=== PATIENT | female | born 1940 | race Caucasian/White ===

== ENCOUNTER → 2016-06-19 | Outpatient (CLI) | payer OTHER ==
[2016-06-19 12:49] LABS: BASO % 0.7 %; BASO ABS # 0.04 K/uL (0-0.2); COMPLETE YES; EOS % 4.1 %; HEMATOCRIT 34.5 % (37-47); IG% 0.2 %; LYMPH % 35.1 %; MEAN CELL VOLUME 87.3 fL (80-100); MEAN CORPUSCULAR HEMOGLOBIN 28.9 pg (25-34); MEAN PLATELET VOLUME 10.8 fL (7.4-10.4); MONO % 6.6 %; NEUT % 53.3 %; PLATELET COUNT 218 K/uL (130-400); RED BLOOD COUNT 3.95 M/uL (4.2-5.4); WHITE BLOOD COUNT 5.42 K/uL (4.8-10.8)
[2016-06-19 13:28] LABS: ALB/GLOB RATIO 1.1 (0.9-2); ALKALINE PHOSPHATASE 121 U/L (45-117); ALT/SGPT 21 U/L (12-78); AST/SGOT 19 U/L (15-37); BLOOD UREA NITROGEN 18 mg/dl (7-18); BUN/CREATININE RATIO 15.1 (10-20); CALCIUM 8.5 mg/dl (8.5-10.1); CARBON DIOXIDE 25 mmol/L (21-32); CHLORIDE 111 mmol/L (98-107); GLUCOSE 82 mg/dl (70-99); HDL CHOLESTEROL 66 mg/dl; POTASSIUM 3.9 mmol/L (3.5-5.1); SODIUM 143 mmol/L (136-145)
[2016-06-19 13:38] LABS: CHOLESTEROL 160 mg/dl (0-200); CHOLESTEROL/HDL RATIO 2.4; LDL CHOLESTEROL CALCULATED 70 mg/dl; TRIGLYCERIDES 121 mg/dl (0-150); VERY LOW DENSITY LIPOPROT CALC 24 mg/dl
== END | disposition home or self-care (01) ==
LOC: C.LABPBG 07:58
PROVIDERS: ATTEND Neuromusculoskeletal Medicine & OMM
DX: Z00.00 Encounter for general adult medical examination without abnormal findings (principal)

== ENCOUNTER → 2016-12-21 | Outpatient (CLI) | payer OTHER ==
[2016-12-21 17:37] LABS: BASO % 0.7 %; BASO ABS # 0.04 K/uL (0-0.2); COMPLETE YES; EOS % 6.2 %; HEMATOCRIT 34.3 % (37-47); IG% 0.6 %; LYMPH % 37.8 %; LYMPH ABS # 2.02 K/uL (1.2-3.4); MEAN CELL VOLUME 90.7 fL (80-100); MEAN CORPUSCULAR HEMOGLOBIN 29.6 pg (25-34); MEAN CORPUSCULAR HGB CONC 32.7 g/dl (32-36); MEAN PLATELET VOLUME 11.1 fL (7.4-10.4); MONO % 6.7 %; PLATELET COUNT 222 K/uL (130-400); RED BLOOD COUNT 3.78 M/uL (4.2-5.4); WHITE BLOOD COUNT 5.34 K/uL (4.8-10.8)
[2016-12-21 17:55] LABS: ALT/SGPT 26 U/L (12-78); AST/SGOT 25 U/L (15-37); BLOOD UREA NITROGEN 31 mg/dl (7-18); BUN/CREATININE RATIO 23.9 (10-20); CALCIUM 9.2 mg/dl (8.5-10.1); CARBON DIOXIDE 22 mmol/L (21-32); CHLORIDE 114 mmol/L (98-107); GLUCOSE 100 mg/dl (70-99); POTASSIUM 4.2 mmol/L (3.5-5.1); SODIUM 143 mmol/L (136-145)
[2016-12-21 17:58] LABS: ALKALINE PHOSPHATASE 148 U/L (45-117)
== END | disposition home or self-care (01) ==
LOC: C.LABPBG 14:16
PROVIDERS: ATTEND Neuromusculoskeletal Medicine & OMM
DX: Z00.00 Encounter for general adult medical examination without abnormal findings (principal); D64.9 Anemia, unspecified; I10 Essential (primary) hypertension

== ENCOUNTER → 2017-04-26 | Outpatient (CLI) | payer OTHER ==
[2017-04-26 18:11] LABS: BASO % 0.7 %; BASO ABS # 0.04 K/uL (0-0.2); EOS % 7.1 %; EOS ABS # 0.42 K/uL (0-0.5); HEMATOCRIT 33.2 % (37-47); HEMOGLOBIN 10.8 g/dL (12.0-16.0); IG# 0.02 K/uL (0.00-0.02); LYMPH % 26.2 %; LYMPH ABS # 1.55 K/uL (1.2-3.4); MEAN CELL VOLUME 92.2 fL (80-100); MEAN CORPUSCULAR HGB CONC 32.5 g/dl (32-36); MEAN PLATELET VOLUME 11.6 fL (7.4-10.4); MONO % 7.1 %; MONO ABS # 0.42 K/uL (0.11-0.59); NEUT % 58.6 %; NEUT ABS # 3.46 K/uL (1.4-6.5); PLATELET COUNT 232 K/uL (130-400); RED CELL DISTRIBUTION WIDTH CV 15.1 % (11.5-14.5); RED CELL DISTRIBUTION WIDTH SD 50.9 fL (36.4-46.3); WHITE BLOOD COUNT 5.91 K/uL (4.8-10.8)
[2017-04-26 18:29] LABS: BLOOD UREA NITROGEN 36 mg/dl (7-18); CREATININE 1.84 mg/dl (0.60-1.20); GLUCOSE 91 mg/dl (70-99)
[2017-04-26 18:30] LABS: CALCIUM 9.5 mg/dl (8.5-10.1); CARBON DIOXIDE 25 mmol/L (21-32); POTASSIUM 3.7 mmol/L (3.5-5.1); SODIUM 138 mmol/L (136-145)
== END | disposition home or self-care (01) ==
LOC: C.LABPBG 12:10
PROVIDERS: ATTEND Internal Medicine Rheumatology
DX: M25.50 Pain in unspecified joint (principal); M81.0 Age-related osteoporosis without current pathological fracture; E55.9 Vitamin D deficiency, unspecified; R20.2 Paresthesia of skin; Z79.899 Other long term (current) drug therapy

== ENCOUNTER → 2017-05-04 | Outpatient (CLI) | payer OTHER | END | disposition home or self-care (01) | LOC: C.LABPBG 12:30 | PROVIDERS: ATTEND Family Medicine | DX: E55.9 Vitamin D deficiency, unspecified (principal); D64.9 Anemia, unspecified ==

== ENCOUNTER → 2017-05-29 | Outpatient (CLI) | payer OTHER ==
[2017-05-29 17:44] LABS: ALBUMIN 3.6 gm/dl (3.4-5.0); BLOOD UREA NITROGEN 35 mg/dl (7-18); CALCIUM 9.1 mg/dl (8.5-10.1); CARBON DIOXIDE 24 mmol/L (21-32); CREATININE 1.56 mg/dl (0.60-1.20); GLUCOSE 93 mg/dl (70-99); PHOSPHORUS 3.8 mg/dl (2.5-4.9); POTASSIUM 4.2 mmol/L (3.5-5.1); SODIUM 144 mmol/L (136-145)
== END | disposition home or self-care (01) ==
LOC: C.LABPBG 15:20
PROVIDERS: ATTEND Internal Medicine Nephrology
DX: N17.9 Acute kidney failure, unspecified (principal)

== ENCOUNTER → 2017-07-24 | Outpatient (CLI) | payer OTHER ==
[2017-07-24 14:34] LABS: ALBUMIN 3.8 gm/dl (3.4-5.0); ALT/SGPT 21 U/L (12-78); AST/SGOT 18 U/L (15-37); BLOOD UREA NITROGEN 27 mg/dl (7-18); CALCIUM 9.7 mg/dl (8.5-10.1); CARBON DIOXIDE 22 mmol/L (21-32); CREATININE 1.43 mg/dl (0.60-1.20); GLUCOSE 91 mg/dl (70-99); POTASSIUM 4.1 mmol/L (3.5-5.1); SODIUM 138 mmol/L (136-145)
[2017-07-24 14:37] LABS: CHOLESTEROL 230 mg/dl (0-200); LDL CHOLESTEROL CALCULATED 119 mg/dl; PHOSPHORUS 3.2 mg/dl (2.5-4.9)
== END | disposition home or self-care (01) ==
LOC: C.LABPBG 10:34
PROVIDERS: ATTEND Family Medicine
DX: E78.2 Mixed hyperlipidemia (principal); N17.9 Acute kidney failure, unspecified

== ENCOUNTER 2023-02-26 10:21 | Observation (INO) ==
--- NOTE | 2023-02-26 11:49 | XRay Report ---
XR chest 1V not portable HISTORY: Chest pain, nonspecific COMPARISON: Chest 08/19/2021. FINDINGS: No pneumothorax. No pleural effusions. No focal lung consolidations to suggest a pneumonia. No evidence for pulmonary edema. The heart is normal in size. No acute fractures identified. Possibl e 1 cm nodule within the left upper lobe. IMPRESSION: 1. No acute process within the chest. 2. Possible 1 cm left upper lobe nodule. Follow-up nonemergent chest CT is recommended for further ev aluation. ACT 112: Positive. There are findings on this exam that require communication between the performing entity and the patient following Patient Test Result Information Act ([place] Act 112) guidelines. Electronically signed by: Redd Ulrich M.D. 02/26/2023 11:48 AM
[2023-02-26 12:21] LABS: Basophils # (auto) 0.02 K/uL (0.00-0.20); Basophils % (auto) 0.3 %; Eosinophils % (auto) 1.3 %; Hematocrit (blood only) 32.2 % (37.0-47.0); Hemoglobin 10.4 g/dl (12.0-16.0); Immature Granulocytes # (auto) 0.12 K/uL (0.01-0.20); Immature Granulocytes % (auto) 1.6 %; Lymphocytes # (auto) 0.46 K/uL (1.20-3.40); Lymphocytes % (auto) 6.1 %; Mean Corpuscular Hemoglobin 32.7 pg (25.0-34.0); Mean Corpuscular Hgb Conc 32.3 g/dL (32.0-36.0); Mean Corpuscular Volume 101.3 fL (80.0-100.0); Mean Platelet Volume 11.7 fL (9.4-12.4); Monocytes # (auto) 0.63 K/uL (0.11-0.59); Monocytes % (auto) 8.3 %; Neutrophils # (auto) 6.23 K/uL (1.40-6.50); Neutrophils % (auto) 82.4 %; Nucleated RBC # (auto) 0.03 K/uL (0.00-0.12); Nucleated RBC % (auto) 0.4 %; Platelet Count 154 K/uL (130-400); RDW Coefficient of Variation 15.4 % (11.5-14.5); RDW Standard Deviation 56.5 fL (36.4-46.3); Red Blood Count 3.18 M/uL (4.20-5.40); White Blood Count 7.56 K/ul (4.8-10.8)
[2023-02-26 12:38] LABS: Alanine Aminotransferase 22 U/L (7-52); Albumin Globulin Ratio 1.7 (0.9-2); Albumin Level 4.1 gm/dl (3.4-5.0); Alkaline Phosphatase 129 U/L (34-104); Anion Gap 8 (3-11); Aspartate Aminotransferase 20 U/L (13-39); BUN Creatinine Ratio 19.5 (10-20); Bilirubin,Total 0.7 mg/dl (0.2-1.0); Blood Urea Nitrogen 31 mg/dl (6-23); Calcium 8.9 mg/dl (8.6-10.3); Carbon Dioxide 20 mmol/L (21-32); Chloride 111 mmol/L (98-107); Est GFR (African American) 34.2 ml/min; Est GFR (Non-African American) 29.5 ml/min; Globulin 2.4 gm/dl (2.5-4.0); Glucose 95 mg/dl (70-99(Fasting)); Potassium 3.6 mmol/L (3.5-5.1); Sodium 139 mmol/L (136-145); Total Protein 6.5 gm/dl (6.0-8.3)
[2023-02-26 12:44] LABS: Troponin I High Sensitivity 33.8 pg/ml (0-14)
[2023-02-26 12:58] LABS: Partial Thromboplastin Ratio 0.8; Partial Thromboplastin Time 23.9 Seconds (21.0-31.0); Prothrombin Time 11.4 Seconds (9.0-12.0)
--- NOTE | 2023-02-26 13:23 | Emergency Department Note ---
Impression & Plan Anemia, Chest pain, COVID, Abnormal CXR ED Provider Note NAME: ELVIN NAVA AGE: 82 SEX: F : 1940 ARRIVES VIA: Ambulance INFORMANT: Patient, ED PROVIDER(S): Santiago Agarwal MD CHIEF COMPLAINT: MEDICAL DECISION MAKING: Patient presents due to concern for chest pain in setting of cough. IV was established and blood was obtained. Patient is ordered a breathing treatment. Initial blood work shows normal white count mild anemia hemoglobin 10.4 which is chronic and stable with normal platelet count kidney function with creatinine 1.59. Initial troponin of 33.8. Repeat is 38. EKG with no obvious significant changes. Patient is COVID-positive. Given the patient is high risk with positive troponin I did suggest admission the patient would like to stay. Patient initially was considering leaving AGAINST MEDICAL ADVICE but then decided that she would stay in hospital. I did speak with on-call hospitalist Dr. Vallejo and the patient was admitted to the medicine service. Of note a pulmonary nodule was noted on the patient's chest x-ray and given the patient's inpatient stay CT of the chest was ordered. Discussion w/ other healthcare providers: Dr. Vallejo inpatient medicine service Prior /Outside records reviewed: I did review a cardiology visit from [facility] from November 20, 2022. The patient does have a known history of coronary atherosclerosis hypertension hyperlipidemia tricuspid regurgitation as well as carotid stenosis. Patient was prescribed a higher dose of Imdur at 120 mg daily. Patient is also on other blood pressure medications as well as aspirin. Differential diagnosis: Reactive airway disease, pneumonia, pneumothorax, COPD, CHF, ACS, pulmonary embolism, musculoskeletal, GERD as well as other pathologies were considered. Diagnostics, as interpreted by me: ECG: Sinus, rate of 75, normal intervals, normal axis slight depressions noted in the lateral leads. T wave inversion noted in lead III. No significant changes on EKG from comparison August 19, 2021 Cardiac monitoring: An order was placed for continuous cardiac monitoring. The monitor shows a rate of 77 with sinus rhythm. Patient was placed on pulse oximetry Medical decision rules: None Imaging studies: I informally interpreted the patient's chest x-ray which does not show obvious pneumonia or pneumothorax with formal report to follow. CT chest diagnostic w con CLINICAL HISTORY: eval lung nodule TECHNIQUE: Multidetector row helical CT of the chest was performed with intravenous contrast. Coronal and sagittal reformations were obtained. Automated dose lowering techniques and/or adjustment according to patient size were utilized for this exam. CT DOSE: 567.82 mGy.cm Comparison: Comparison is made to chest radiograph 02/26/2023 FINDINGS: Lungs and pleura: No suspicious pulmonary nodules are seen. Heart and pericardium: Cardiomegaly is seen with biatrial enlargement. Moderate atherosclerotic disease is seen. Vessels: Unremarkable. Mediastinum and saman: Unremarkable. Chest wall and lower neck: Unremarkable. Abdomen: A hiatal hernia is seen. Bones: Degenerative changes in the thoracic spine. IMPRESSION: No suspicious pulmonary nodules corresponding to the density seen on chest x- ray. No acute abnormalities are seen. ACT 112: Negative or not required by law. Electronically signed by: Rios Daugherty M.D. 02/26/2023 7:38 PM Dictated: 02/26/231932 Transcribed: 02/26/231932 HPI: Patient presents due to concern for reported weakness and fatigue. Patient is also had associated dry cough. Patient has had some associated chest pain and shortness of breath chest pain is primarily with coughing. Patient denies any nausea or vomiting but has had associated loose stools. Patient does have a known history of CAD and does follow with cardiology. Patient states she is compliant with her medications. The patient did receive a one-time vaccination for COVID but did develop an allergic reaction. The patient has had no further. Patient denies any recent smoking history. PAST MEDICAL HISTORY: See Below PAST SURGICAL HISTORY: See Below SOCIAL HISTORY: See Below HOME MEDICATIONS: See Below ALLERGIES: See Below VITALS: See Below PHYSICAL EXAMINATION: GENERAL: NAD, non-toxic. Wearing a mask EYE EXAM: Normal conjunctiva. PERRL, no anisocoria and EOM's grossly intact w/o pain. OROPHARYNX: Moist mucus membranes, grossly normal dentition. NECK: Supple, no nuchal rigidity, no adenopathy, non-tender. No signs of meningismus. FROM of the neck with good chin to chest and neck extension. No stridor. LUNGS: Clear to auscultation. Normal chest wall mechanics. HEART: NSR, no MRG. ABDOMEN: Abdomen soft, non-tender, no masses, no rebound or guarding. BACK: No CVA TTP. SKIN: No rashes and no bruising. UPPER EXTREMITIES: Upper extremities are grossly normal. LOWER EXTREMITIES: Grossly normal, no edema. Negative Homans' sign bilaterally. NEURO EXAM: A&O x3, cranial nerves II-XII grossly intact, normal speech, moves all 4 extremities. Past Med/Surg History Medical History Vitamin B 12 deficiency Folate deficiency Acute kidney injury Cervical stenosis of spine Rheumatoid arthritis Tricuspid regurgitation TIA (transient ischemic attack) "years ago" Polyarthralgia Vitamin D deficiency Sleep apnea no device Primary osteoarthritis of knees, bilateral Peripheral neuropathy, idiopathic Osteopenia Mild cognitive impairment Extrinsic asthma Coronary atherosclerosis Chronic kidney disease, stage IV (severe) Benign essential tremor Anxiety and depression Anemia GERD (gastroesophageal reflux disease) Hypertension Hyperlipidemia Surgical History S/P trigger finger release (09/16/19) L long finger History of carpal tunnel surgery of left wrist (09/16/19) History of total abdominal hysterectomy and bilateral salpingo-oophorectomy History of herniorrhaphy X 2 History of section X 3 History of esophagogastroduodenoscopy (EGD) History of colonoscopy History of cholecystectomy History of cataract surgery RT/LEFT History of cardiac cath "SEVERAL HEART CATH'S AND NO STENTS PLACED" Family History Mother Colorectal cancer Sister Lung cancer Cancer Grandmother (Maternal) Cancer Father Coronary heart disease Myocardial infarction Other No family history of adverse response to anesthesia Denies family history of Ovarian cancer Prostate cancer Breast cancer Social History Smoking Status: Former smoker Tobacco Type: Cigarettes packs per day: 1.5; Second Hand Exposure: Yes; Do You Dip or Chew Tobacco: No; Tobacco Cessation Education Requested by Patient: No Hx Alcohol Use: No Hx Substance Use: No Preferred Language: Swazi Communication Ability: Effective Visual Impairment: No Limitations Hearing Ability: Normal Clother In Required: No Beliefs That Will Affect Care: None marital status: Current Living Situation: Family Current Living Situation Comment: LIVES WITH SON current occupational status: retired Other Information That Helps Us Care for You: No Feels Safe at Home: Yes Childhood Exposure to Second-Hand Smoke: Yes Diet: regular Diet Comment: regular caffeine: Yes (daily caffeine consumption.) during the past year weight has: remained stable Dental Care, Regularly: No Physical Activity Frequency: Daily Physical Activity Frequency Comment: walks dogs daily Seatbelt Use: always Sunscreen Use: Yes Assistive Devices: None Allergies Allergies Allergy/AdvReac Type Severity Reaction Status Date / Time procaine [From Novocain] Allergy Mild Rash Verified 02/26/23 17:02 Home Meds Home Medications Medication Instructions Recorded Confirmed acetaminophen 500 mg tablet 1,000 mg PO TID 10/04/22 02/26/23 (Tylenol Extra Strength) isosorbide mononitrate 120 mg 120 mg PO QAM 02/01/23 02/26/23 tablet,extended release 24 hr albuterol sulfate 90 mcg/actuation 1 - 2 puff inhalation .Q4-6HRS PRN 02/26/23 02/26/23 aerosol inhaler (Ventolin HFA) shortness of breath or wheezing Previous Rx's Medication Instructions Recorded aspirin 81 mg tablet,delayed 81 mg PO QAM #30 tabs 10/02/18 release cetirizine 10 mg capsule (Zyrtec) 10 mg PO QAM #30 caps 10/02/18 pantoprazole 40 mg tablet,delayed 40 mg PO DAILYBB #90 tabs 05/12/21 release (Protonix) diclofenac sodium 1 % topical gel 2 g topical QID PRN Pain #100 grams 12/08/21 fluticasone furoate 100 1 inh inhalation DAILY #60 ea 09/12/22 mcg-vilanterol 25 mcg/dose inhalation powder (Breo Ellipta) lisinopril 10 1 tab PO BID #180 tabs 09/12/22 mg-hydrochlorothiazide 12.5 mg tablet zolpidem 5 mg tablet (Ambien) 5 mg PO HS #30 tabs 11/09/22 sertraline 50 mg tablet 75 mg (1.5 x 50 mg) PO QAM #135 11/27/22 tabs nifedipine 60 mg tablet,extended 60 mg PO BID #60 tabs 12/07/22 release atorvastatin 80 mg tablet 80 mg PO QPM #90 tabs 02/16/23 molnupiravir 200 mg capsule (EUA) 800 mg (4 x 200 mg) PO Q12H 5 days 02/26/23 (Lagevrio) #40 caps Results & Data (ED) Vital Signs Vital Signs - 24 hr 02/26/23 15:18 02/26/23 15:19 02/26/23 15:35 Pulse Rate 87 Pulse Rate [Apical] 70 Respiratory Rate 18 Blood Pressure [Right Arm] 174/78 H Blood Pressure Mean [Right Arm] 110 Blood Pressure Position [Right Arm] Lying Pulse Oximetry 98 97 Oxygen Delivery Method Room Air Room Air Home Medications Current Medication List: was personally reviewed by me Laboratory Data Attestation: I reviewed the patient's lab results. 02/27/23 04:07 02/27/23 04:07 Lab Results 02/26/23 02/26/23 Range/Units 11:59 15:06 WBC 7.56 (4.8-10.8) K/ul RBC 3.18 L (4.20-5.40) M/uL Hgb 10.4 L (12.0-16.0) g/dl Hct 32.2 L (37.0-47.0) % MCV 101.3 H (80.0-100.0) fL MCH 32.7 (25.0-34.0) pg MCHC 32.3 (32.0-36.0) g/dL RDW Std Deviation 56.5 H (36.4-46.3) fL RDW Coeff of Lacie 15.4 H (11.5-14.5) % Plt Count 154 (130-400) K/uL MPV 11.7 (9.4-12.4) fL Immature Gran % (Auto) 1.6 % Neut % (Auto) 82.4 % Lymph % (Auto) 6.1 % [place] % (Auto) 8.3 % Eos % (Auto) 1.3 % Baso % (Auto) 0.3 % Neut # (Auto) 6.23 (1.40-6.50) K/uL Lymph # (Auto) 0.46 L (1.20-3.40) K/uL [place] # (Auto) 0.63 H (0.11-0.59) K/uL Eos # (Auto) 0.10 (0.00-0.50) K/uL Baso # (Auto) 0.02 (0.00-0.20) K/uL Immature Gran # (Auto) 0.12 (0.01-0.20) K/uL Absolute Nucleated RBC 0.03 (0.00-0.12) K/uL Nucleated RBC % (auto) 0.4 % PT 11.4 (9.0-12.0) Seconds INR 1.0 (0.9-1.1) APTT 23.9 (21.0-31.0) Seconds PTT Ratio 0.8 Sodium 139 (136-145) mmol/L Potassium 3.6 (3.5-5.1) mmol/L Chloride 111 H (98-107) mmol/L Carbon Dioxide 20 L (21-32) mmol/L Anion Gap 8 (3-11) BUN 31 H (6-23) mg/dl Creatinine 1.59 H (0.6-1.2) mg/dl Est Cr Clr Drug Dosing Not Reportable Est GFR ( Amer) 34.2 ml/min Est GFR (Non-Af Amer) 29.5 ml/min BUN/Creatinine Ratio 19.5 (10-20) Glucose 95 (70-99(Fasting)) mg/dl Calcium 8.9 (8.6-10.3) mg/dl Total Bilirubin 0.7 (0.2-1.0) mg/dl AST 20 (13-39) U/L ALT 22 (7-52) U/L Alkaline Phosphatase 129 H (34-104) U/L Troponin I High Sens 33.8 H 38.0 H (0-14) pg/ml C-Reactive Protein 0.82 H (0-0.5) mg/dl B-Natriuretic Peptide 226 H (0-100) pg/ml Total Protein 6.5 (6.0-8.3) gm/dl Albumin 4.1 (3.4-5.0) gm/dl Globulin 2.4 L (2.5-4.0) gm/dl Albumin/Globulin Ratio 1.7 (0.9-2) Administered Medications Acetaminophen (Acetaminophen 500 Mg Tab) 1,000 mg PO TID AMAN Stop: 03/28/23 20:59 Last Admin: 02/27/23 09:40 Dose: 1,000 mg Documented By: Admin: 02/26/23 22:05 Dose: 1,000 mg Documented By: QGV Aspirin (Aspirin 81 Mg Ectab) 81 mg PO QAM AMAN Stop: 03/29/23 08:59 Last Admin: 02/27/23 09:40 Dose: 81 mg Documented By: RICKY Atorvastatin Calcium (Atorvastatin 40 Mg Tab) 80 mg PO QPM [facility] Stop: 03/28/23 20:59 Last Admin: 02/26/23 22:04 Dose: 80 mg Documented By: QGV Cetirizine HCl (Cetirizine Hcl 10 Mg Tablet) 10 mg PO QAM [facility] Stop: 03/29/23 08:59 Last Admin: 02/27/23 09:40 Dose: 10 mg Documented By: RICKY Fluticasone/Vilanterol (Fluticasone/Vilanterol 100/25mcg 14 Puffs/Inhaler) 1 puffs INH DAILY [facility] Stop: 03/29/23 08:59 Last Admin: 02/27/23 09:40 Dose: 1 puffs Documented By: RICKY Lisinopril/HCTZ (Lisinopril/Hctz 10/12.5mg Tab) 1 tab PO BID [facility] Stop: 03/28/23 20:59 Last Admin: 02/27/23 09:40 Dose: 1 tab Documented By: Admin: 02/26/23 22:05 Dose: 1 tab Documented By: QGV Isosorbide Mononitrate (Isosorbide [place] Extended Rel 60 Mg Tabcr) 120 mg PO QAM [facility] Stop: 03/29/23 08:59 Last Admin: 02/27/23 09:41 Dose: 120 mg Documented By: RICKY Nifedipine (Nifedipine Extended Rel 30 Mg Tabcr) 60 mg PO BID [facility] Stop: 03/28/23 20:59 Last Admin: 02/27/23 09:41 Dose: 60 mg Documented By: Admin: 02/26/23 22:05 Dose: 60 mg Documented By: QGV Pantoprazole Sodium (Pantoprazole 40 Mg Tab) 40 mg PO DAILYBB [facility] Stop: 03/29/23 06:29 Last Admin: 02/27/23 06:31 Dose: 40 mg Documented By: RYLEE Sertraline HCl (Sertraline Hcl 50 Mg Tablet) 75 mg PO QAM [facility] Stop: 03/29/23 08:59 Last Admin: 02/27/23 09:41 Dose: 75 mg Documented By: RICKY Zolpidem Tartrate (Zolpidem Tartrate 5 Mg Tab) 5 mg PO HS [facility] Stop: 03/28/23 20:59 Last Admin: 02/26/23 22:05 Dose: 5 mg Documented By: QGV Discontinued Medications Acetaminophen (Acetaminophen 500 Mg Tab) 1,000 mg PO NOW STA Stop: 02/26/23 14:44 Last Admin: 02/26/23 15:11 Dose: 1,000 mg Documented By: QGV Sodium Chloride (Nss) 500 mls @ 999 mls/hr IV .Q31M ONE Stop: 02/26/23 15:13 Last Infusion: 02/26/23 16:19 Dose: Infused Documented By: Admin: 02/26/23 15:13 Dose: 999 mls/hr Documented By: QGV Ioversol (Optiray 320 500ml) 90 ml IV ONCE ONE Stop: 02/26/23 17:49 Last Admin: 02/26/23 17:42 Dose: 90 ml Documented By: BRM Levalbuterol HCl (Levalbuterol 1.25mg/0.5ml Neb) 1.25 mg NEB NOW STA; Protocol Stop: 02/26/23 14:44 Last Admin: 02/26/23 16:32 Dose: Not Given Documented By: JTM Levalbuterol HCl (Levalbuterol 1.25 Mg/3 Ml Neb) Confirm Administered Dose 1.25 mg .ROUTE .STK-MED ONE Stop: 02/26/23 16:19 Last Admin: 02/26/23 16:32 Dose: Not Given Documented By: JTM Imaging Data Radiologist's Impression: Chest X-Ray 02/26/23 10:40 XR chest 1V not portable HISTORY: Chest pain, nonspecific COMPARISON: Chest 08/19/2021. FINDINGS: No pneumothorax. No pleural effusions. No focal lung consolidations to suggest a pneumonia. No evidence for pulmonary edema. The heart is normal in size. No acute fractures identified. Possible 1 cm nodule within the left upper lobe. IMPRESSION: 1. No acute process within the chest. 2. Possible 1 cm left upper lobe nodule. Follow-up nonemergent chest CT is recommended for further evaluation. ACT 112: Positive. There are findings on this exam that require communication between the performing entity and the patient following Patient Test Result Information Act ([place] Act 112) guidelines. Electronically signed by: Redd Ulrich M.D. 02/26/2023 11:48 AM Discharge Plan Visit Data Chief Complaint: Shortness of Breath/Dyspnea Stated Complaint: SOB, FEVER, COUGH, DIARRHEA ED Provider: Santiago Agarwal Discharge Problem: Anemia, Chest pain, COVID, Abnormal CXR Patient Disposition: Admitted As Inpatient Discharge Instructions Interventions: ED Discharge Assessment Last Done: 02/26/23 18:47
[2023-02-26] MEDS ORDERED: SODIUM CHLORIDE 0.9% 500 ML IV ONE (14:43)
[2023-02-26] MEDS ORDERED: LEVALBUTEROL 1.25MG/0.5ML NEB NEB STA (14:43)
[2023-02-26] MEDS ORDERED: ACETAMINOPHEN 500 MG TAB PO STA (14:43)
[2023-02-26 16:15] LABS: Adenovirus PCR Not Detected (NotDetected); Bordetella parapertussis PCR Not Detected (NotDetected); Bordetella pertussis PCR Not Detected (NotDetected); Chlamydia pneumoniae PCR Not Detected (NotDetected); Coronavirus 229E PCR Not Detected (NotDetected); Coronavirus HKU1 PCR Not Detected (NotDetected); Coronavirus NL63 PCR Not Detected (NotDetected); Coronavirus OC43PCR Not Detected (NotDetected); Human Metapneumovirus PCR Not Detected (NotDetected); Influenza A PCR Not Detected (NotDetected); Influenza B PCR Not Detected (NotDetected); Mycoplasma pneumoniae PCR Not Detected (NotDetected); Parainfluenza Virus 1 PCR Not Detected (NotDetected); Parainfluenza Virus 2 PCR Not Detected (NotDetected); Parainfluenza Virus 3 PCR Not Detected (NotDetected); Parainfluenza Virus 4 PCR Not Detected (NotDetected); Respiratory Syncytial VirusPCR Not Detected (NotDetected); Rhinovirus/Enterovirus PCR Not Detected (NotDetected)
[2023-02-26] MEDS ORDERED: LEVALBUTEROL 1.25 MG/3 ML NEB ONE (16:18)
[2023-02-26 16:19] LABS: Coronavirus CoV-2 (COVID19)PCR DETECTED (NotDetected)
--- NOTE | 2023-02-26 16:46 | History & Physical Report ---
Date of Service February 26, 2023 Assessment & Plan (1) COVID: Plan: No hypoxia but patient feels too weak to go home at this time. Isolation precautions Unable to prescribe Paxlovid due to reduced renal function. Will prescribe molnupiravir and have her son pick this up to bring in. Continue the rest of her routine medications PT/OT - possible home tomorrow if she does well with this (2) Chest pain: Plan: Suspect MSK related to her coughing. Trend troponin (3) Abnormal CXR: Plan: 1cm upper lobe nodule seen on CXR. CT ordered by the ER pending result at time of admission. Plan VTE Prophylaxis - deferred on admission given likely short duration of stay but if requiring rehab recommend chemical prophyalxis Diet - regular Disposition - observation to med/tele Admission and Anticipated Discharge Date Admission Date: February 26, 2023 History of Present Illness Chief Complaint: Shortness of breath Primary Care Provider: Tangela Robledo DO Gayatri Weems is an 82 year old female who presents to the ER with shortness of breath. She reports cough and shortness of breath started on Sunday (2 days prior to admission) and getting progressively worse. She lives with her son at home. No fever or chills. Associated fatigue and generalized weakness. She has a good appetite and no diarrhea, abdominal pain, nausea or vomting. She has chest pain when she coughs which is worse on palpation but not outside of this. She currently denies any chest pain. Cough is dry. Allergies Allergy/AdvReac Type Severity Reaction Status Date / Time procaine [From Novocain] Allergy Mild Rash Verified 02/26/23 17:02 Home Medications Medication Instructions Recorded Confirmed Type aspirin 81 mg tablet,delayed 81 mg PO QAM #30 tabs 10/02/18 02/26/23 Rx release cetirizine 10 mg capsule (Zyrtec) 10 mg PO QAM #30 caps 10/02/18 02/26/23 Rx pantoprazole 40 mg tablet,delayed 40 mg PO DAILYBB #90 tabs 05/12/21 02/26/23 Rx release (Protonix) diclofenac sodium 1 % topical gel 2 g topical QID PRN Pain #100 grams 12/08/21 02/26/23 Rx fluticasone furoate 100 1 inh inhalation DAILY #60 ea 09/12/22 02/26/23 Rx mcg-vilanterol 25 mcg/dose inhalation powder (Breo Ellipta) lisinopril 10 1 tab PO BID #180 tabs 09/12/22 02/26/23 Rx mg-hydrochlorothiazide 12.5 mg tablet acetaminophen 500 mg tablet 1,000 mg PO TID 10/04/22 02/26/23 History (Tylenol Extra Strength) zolpidem 5 mg tablet (Ambien) 5 mg PO HS #30 tabs 11/09/22 02/26/23 Rx sertraline 50 mg tablet 75 mg (1.5 x 50 mg) PO QAM #135 11/27/22 02/26/23 Rx tabs nifedipine 60 mg tablet,extended 60 mg PO BID #60 tabs 12/07/22 02/26/23 Rx release isosorbide mononitrate 120 mg 120 mg PO QAM 02/01/23 02/26/23 History tablet,extended release 24 hr atorvastatin 80 mg tablet 80 mg PO QPM #90 tabs 02/16/23 02/26/23 Rx albuterol sulfate 90 mcg/actuation 1 - 2 puff inhalation .Q4-6HRS PRN 02/26/23 02/26/23 History aerosol inhaler (Ventolin HFA) shortness of breath or wheezing molnupiravir 200 mg capsule (EUA) 800 mg (4 x 200 mg) PO Q12H 5 days 02/26/23 Rx (Lagevrio) #40 caps Past Med/Surg History Medical History Vitamin B 12 deficiency Folate deficiency Acute kidney injury Cervical stenosis of spine Rheumatoid arthritis Tricuspid regurgitation TIA (transient ischemic attack) "years ago" Polyarthralgia Vitamin D deficiency Sleep apnea no device Primary osteoarthritis of knees, bilateral Peripheral neuropathy, idiopathic Osteopenia Mild cognitive impairment Extrinsic asthma Coronary atherosclerosis Chronic kidney disease, stage IV (severe) Benign essential tremor Anxiety and depression Anemia GERD (gastroesophageal reflux disease) Hypertension Hyperlipidemia Surgical History S/P trigger finger release (09/16/19) L long finger History of carpal tunnel surgery of left wrist (09/16/19) History of total abdominal hysterectomy and bilateral salpingo-oophorectomy History of herniorrhaphy X 2 History of section X 3 History of esophagogastroduodenoscopy (EGD) History of colonoscopy History of cholecystectomy History of cataract surgery RT/LEFT History of cardiac cath "SEVERAL HEART CATH'S AND NO STENTS PLACED" Family History Mother Colorectal cancer Sister Lung cancer Cancer Grandmother (Maternal) Cancer Father Coronary heart disease Myocardial infarction Other No family history of adverse response to anesthesia Denies family history of Ovarian cancer Prostate cancer Breast cancer Social History Smoking Status: Former smoker Tobacco Type: Cigarettes packs per day: 1.5; Second Hand Exposure: Yes; Do You Dip or Chew Tobacco: No; Tobacco Cessation Education Requested by Patient: No Hx Alcohol Use: No Hx Substance Use: No Preferred Language: Kittitian Communication Ability: Effective Visual Impairment: No Limitations Hearing Ability: Normal Nanotechnology Technician Required: No Beliefs That Will Affect Care: None marital status: Current Living Situation: Family Current Living Situation Comment: LIVES WITH SON current occupational status: retired Other Information That Helps Us Care for You: No Feels Safe at Home: Yes Childhood Exposure to Second-Hand Smoke: Yes Diet: regular Diet Comment: regular caffeine: Yes (daily caffeine consumption.) during the past year weight has: remained stable Dental Care, Regularly: No Physical Activity Frequency: Daily Physical Activity Frequency Comment: walks dogs daily Seatbelt Use: always Sunscreen Use: Yes Assistive Devices: None Review of Systems Review of Systems: All systems reviewed & are unremarkable except as noted in HPI & below Physical Exam Constitutional: WD/WN, vitals as above Eyes: PERRL, conjunctivae normal, anicteric sclerae ENMT: external ear and nose normal, oropharynx normal Neck: trachea midline, no thyromegaly Respiratory: normal respiratory effort, lungs clear to auscultation Cardiovascular: RRR, no murmur, no edema Gastrointestinal (Abdomen): normal bowel sounds, soft, nontender, no hepatosplenomegaly Musculoskeletal: no cyanosis or clubbing, extremities motor strength 5/5 Skin: no rashes, warm and dry Neurologic: moves all extremities and awake; not confused Psychiatric: A+Ox3, euthymic affect Results & Data Results & Data Vital Signs (Past 12 Hours) Vital Signs Temp Pulse Pulse Resp BP BP Pulse Ox 02/26/23 15:35 97 02/26/23 15:19 87 02/26/23 15:18 70 18 174/78 H 98 02/26/23 10:36 37 C 81 18 166/71 H 98 O2 Del Method 02/26/23 15:35 Room Air 02/26/23 15:19 02/26/23 15:18 Room Air 02/26/23 10:36 Room Air Laboratory Results Abnormal lab results 02/26/23 02/26/23 02/26/23 Range/Units 11:59 15:06 Unknown RBC 3.18 L (4.20-5.40) M/uL Hgb 10.4 L (12.0-16.0) g/dl Hct 32.2 L (37.0-47.0) % MCV 101.3 H (80.0-100.0) fL RDW Std Deviation 56.5 H (36.4-46.3) fL RDW Coeff of Lacie 15.4 H (11.5-14.5) % Lymph # (Auto) 0.46 L (1.20-3.40) K/uL Edwards # (Auto) 0.63 H (0.11-0.59) K/uL Chloride 111 H (98-107) mmol/L Carbon Dioxide 20 L (21-32) mmol/L BUN 31 H (6-23) mg/dl Creatinine 1.59 H (0.6-1.2) mg/dl Alkaline Phosphatase 129 H (34-104) U/L Troponin I High Sens 33.8 H 38.0 H (0-14) pg/ml B-Natriuretic Peptide 226 H (0-100) pg/ml Globulin 2.4 L (2.5-4.0) gm/dl SARS-CoV-2 (PCR) DETECTED A* (NotDetected) Diagnostic Findings XR chest 1V not portable HISTORY: Chest pain, nonspecific COMPARISON: Chest 08/19/2021. FINDINGS: No pneumothorax. No pleural effusions. No focal lung consolidations to suggest a pneumonia. No evidence for pulmonary edema. The heart is normal in size. No acute fractures identified. Possible 1 cm nodule within the left upper lobe. IMPRESSION: 1. No acute process within the chest. 2. Possible 1 cm left upper lobe nodule. Follow-up nonemergent chest CT is recommended for further evaluation. Medications Administered ER Medications Given: Normal saline 500ml bolus Acetaminophen 1000mg PO levalbuterol 1.25mg NEB ECG Rate (beats per minute): 75 Rhythm: normal sinus Findings: + PAC Comparison ECG Date: from (August 19, 2021) Change: the following changes noted (T wave flattening in lateral leads is new) Code Status & VTE Plan Code Status Full VTE Prophylaxis Plan VTE Prophylaxis will be ordered: Yes PG Care Time/CCT Total # of Minutes Spent Total Time Spent with Patient: Total time spent is greater than 50% in coordination of care (as documented) at patient's floor/unit and/or counseling patient: Coding Level of Care Code 43492 INT INP/OBS CARE 2/55MIN Diagnoses COVID U07.1 Chest pain R07.9 Abnormal CXR R93.89
[2023-02-26 17:15] LABS: C Reactive Protein 0.82 mg/dl (0-0.5)
[2023-02-26] MEDS ORDERED: OPTIRAY 320 500ml IV ONE (17:48)
[2023-02-26] MEDS ORDERED: DICLOFENAC SOD 1% GEL 100 GM TUBE EXT PRN (18:46)
--- NOTE | 2023-02-26 19:40 | CT Scan Report ---
CT chest diagnostic w con CLINICAL HISTORY: eval lung nodule TECHNIQUE: Multidetector row helical CT of the chest was performed with intravenous contrast. Coronal and sagittal reformations were obtained. Automated dose lowering techniques and/or adjustment accord ing to patient size were utilized for this exam. CT DOSE: 567.82 mGy.cm Comparison: Comparison is made to chest radiograph 02/26/2023 FINDINGS: Lungs and pleura: No suspicious pulmonary nodules are seen. Heart and pericardium: Cardiomegaly is seen with biatrial enlargement. Moderate atherosclerotic disea se is seen. Vessels: Unremarkable. Mediastinum and saman: Unremarkable. Chest wall and lower neck: Unremarkable. Abdomen: A hiatal hernia is seen. Bones: Degenerative changes in the thoracic spine. IMPRESSION: No suspicious pulmonary nodules corresponding to the density seen on chest x-ray. No acute abnormalit ies are seen. ACT 112: Negative or not required by law. Electronically signed by: Rios Daugherty M.D. 02/26/2023 7:38 PM
[2023-02-26] MEDS ORDERED: ZOLPIDEM TARTRATE 5 MG TAB PO SCH (21:00)
[2023-02-26] MEDS ORDERED: ATORVASTATIN 40 MG TAB PO SCH (21:00)
[2023-02-26] MEDS ORDERED: MOLNUPIRAVIR 800 MG PO SCH (21:00)
[2023-02-26] MEDS: ACETAMINOPHEN 500 MG TAB PO SCH (22:05)
[2023-02-26] MEDS: LISINOPRIL/HCTZ 10/12.5MG TAB PO SCH (22:05)
[2023-02-26] MEDS: NIFEdipine EXTENDED REL 30 MG TABCR PO SCH (22:05)
[2023-02-27 05:13] LABS: Basophils # (auto) 0.02 K/uL (0.00-0.20); Basophils % (auto) 0.4 %; Eosinophils # (auto) 0.18 K/uL (0.00-0.50); Eosinophils % (auto) 3.2 %; Hematocrit (blood only) 28.4 % (37.0-47.0); Hemoglobin 9.1 g/dl (12.0-16.0); Immature Granulocytes % (auto) 1.8 %; Lymphocytes # (auto) 0.72 K/uL (1.20-3.40); Mean Corpuscular Hemoglobin 32.4 pg (25.0-34.0); Mean Corpuscular Volume 101.1 fL (80.0-100.0); Mean Platelet Volume 12.2 fL (9.4-12.4); Monocytes % (auto) 12.6 %; Neutrophils # (auto) 3.82 K/uL (1.40-6.50); Nucleated RBC # (auto) 0.02 K/uL (0.00-0.12); Nucleated RBC % (auto) 0.4 %; Platelet Count 128 K/uL (130-400); RDW Coefficient of Variation 15.4 % (11.5-14.5); RDW Standard Deviation 56.6 fL (36.4-46.3); Red Blood Count 2.81 M/uL (4.20-5.40); White Blood Count 5.54 K/ul (4.8-10.8)
[2023-02-27 05:26] LABS: Albumin Level 3.4 gm/dl (3.4-5.0); Anion Gap 8 (3-11); Bilirubin,Total 0.6 mg/dl (0.2-1.0); Calcium 8.3 mg/dl (8.6-10.3); Carbon Dioxide 18 mmol/L (21-32); Chloride 112 mmol/L (98-107); Potassium 3.2 mmol/L (3.5-5.1); Sodium 138 mmol/L (136-145)
[2023-02-27 05:32] LABS: Alanine Aminotransferase 19 U/L (7-52); Albumin Globulin Ratio 1.6 (0.9-2); Alkaline Phosphatase 112 U/L (34-104); Aspartate Aminotransferase 14 U/L (13-39); BUN Creatinine Ratio 19.7 (10-20); Blood Urea Nitrogen 29 mg/dl (6-23); Est GFR (African American) 37.6 ml/min; Est GFR (Non-African American) 32.4 ml/min; Globulin 2.1 gm/dl (2.5-4.0); Glucose 89 mg/dl (70-99(Fasting)); Total Protein 5.5 gm/dl (6.0-8.3)
[2023-02-27 05:53] LABS: Troponin I High Sensitivity 36.9 pg/ml (0-14)
[2023-02-27] MEDS ORDERED: PANTOprazole 40 MG TAB PO SCH (06:30)
[2023-02-27] MEDS ORDERED: FLUTICASONE/VILANTEROL 100/25MCG 14 PUFFS/INHALER INH SCH (09:00)
[2023-02-27] MEDS ORDERED: CETIRIZINE HCL 10 MG TABLET PO SCH (09:00)
[2023-02-27] MEDS ORDERED: ASPIRIN 81 MG ECTAB PO SCH (09:00)
[2023-02-27] MEDS ORDERED: ISOSORBIDE MONO EXTENDED REL 60 MG TABCR PO SCH (09:00)
[2023-02-27] MEDS ORDERED: SERTRALINE HCL 50 MG TABLET PO SCH (09:00)
[2023-02-27] MEDS: ACETAMINOPHEN 500 MG TAB PO SCH (09:40)
[2023-02-27] MEDS: LISINOPRIL/HCTZ 10/12.5MG TAB PO SCH (09:40)
[2023-02-27] MEDS: NIFEdipine EXTENDED REL 30 MG TABCR PO SCH (09:41)
--- NOTE | 2023-02-27 11:32 | Discharge Summary ---
Date of Service February 27, 2023 Admission HPI Per Admitting Provider Gayatri Weems is an 82 year old female who presents to the ER with shortness of breath. She reports cough and shortness of breath started on Sunday (2 days prior to admission) and getting progressively worse. She lives with her son at home. No fever or chills. Associated fatigue and generalized weakness. She has a good appetite and no diarrhea, abdominal pain, nausea or vomting. She has chest pain when she coughs which is worse on palpation but not outside of this. She currently denies any chest pain. Cough is dry. Principal Diagnosis covid infection Discharge Exam The patient is awake, alert and oriented 3, well developed and well nourished, normocephalic and atraumatic, lying in bed and in no acute distress. HEENT--PERRL, EOMI, mucous membranes and oropharynx mildly dry Neck--supple. No JVD. No bruits. Thyroid normal, trachea midline, no adenopathy. Heart--normal S1 and S2. No murmurs, rubs or gallops. Lungs--clear bilaterally, no respiratory distress, no accessory muscle use. Abdomen--normal bowel sounds and soft. Mild epigastric and left sided abdominal pain Extremities--no cyanosis or clubbing. No edema. Dermatologic--normal skin turgor, normal color, no abnormal lymph nodes, no rash. Neurologic--cranial nerves II through XII grossly intact. Rheumatologic--normal range of motion. Psychiatric--normal affect. Discharge Data Allergies Allergy/AdvReac Type Severity Reaction Status Date / Time procaine [From Novocain] Allergy Mild Rash Verified 02/26/23 17:02 Consultations 02/26/23 14:44 ED Decision to Admit Stat Ordered Studies 02/26/23 16:35 CT chest diagnostic w con Routine Hospital Course (1) COVID: No hypoxia but patient feels too weak to go home at this time. Isolation precautions Unable to prescribe Paxlovid due to reduced renal function. Will prescribe molnupiravir and have her son pick this up to bring in. Continue the rest of her routine medications d/c home today (2) Chest pain: Suspect MSK related to her coughing. Trend troponin (3) Abnormal CXR: 1cm upper lobe nodule seen on CXR. CT ordered by the ER pending result at time of admission. Plan VTE Prophylaxis - deferred on admission given likely short duration of stay but if requiring rehab recommend chemical prophyalxis Diet - regular Disposition - observation to med/tele Total Time Total Time Spent Total Time Spent (In Minutes): 35 Discharge Plan Discharge Items Patient Disposition: Home - Self-Care Reason For Visit: CHEST PAIN, COVID, GENERALIZED WEAKNESS Discharge Diagnosis: covid infection Activity: Resume your previous activity Non-emergency contact: Primary Care Provider Call non-emergency contact if: you have any medication questions Follow-up/Referrals: Tangela Robledo DO [Primary Care Provider] - Diet: Regular Addtl Attending Provider Instructions: Please make appointment to follow-up with her regular PCP Pending Studies at Discharge: No Stand-Alone Forms: My Fit with Friends, Smoking Cessation Medications and DC Order Prescriptions: New Lagevrio (EUA) 200 mg capsule 800 mg PO Q12H 5 Days Qty: 40 0RF Continued pantoprazole [Protonix] 40 mg tablet,delayed release (DR/EC) 40 mg PO DAILYBB Qty: 90 1RF diclofenac sodium 1 % gel 2 g TOPICAL QID PRN (Reason: Pain) Qty: 100 5RF zolpidem [Ambien] 5 mg tablet 5 mg PO HS Qty: 30 3RF sertraline 50 mg tablet 75 mg PO QAM Qty: 135 1RF atorvastatin 80 mg tablet 80 mg PO QPM Qty: 90 2RF Breo Ellipta 100-25 mcg/dose blister with device 1 inh inhalation DAILY Qty: 60 5RF lisinopril-hydrochlorothiazide 10-12.5 mg tablet 1 tab PO BID Qty: 180 3RF nifedipine 60 mg tablet extended release 60 mg PO BID Qty: 60 6RF acetaminophen [Tylenol Extra Strength] 500 mg tablet 1,000 mg PO TID Rx Instructions: takes AM, NOON, HS aspirin 81 mg tablet,delayed release (DR/EC) 81 mg PO QAM Qty: 30 5RF Zyrtec 10 mg capsule 10 mg PO QAM Qty: 30 5RF isosorbide mononitrate 120 mg tablet extended release 24 hr 120 mg PO QAM albuterol sulfate [Ventolin HFA] 90 mcg/actuation HFA aerosol inhaler 1 - 2 puff inhalation .Q4-6HRS PRN (Reason: shortness of breath or wheezing) Rx Instructions: 1-2 puffs INH every 4-6 hrs; PRN; Discharge Orders: Discharge Order (Routine); Ordered 02/27/23 Ordered By: Edna Acuna Admission Data Admit Date/Time: 02/26/23 17:08 Attending Provider: Edna Acuna Admit Provider: Gatito Vallejo Primary Care Provider: Tangela Robledo Other Providers: Gatito Vallejo Coding Level of Care Code 98859 INP/OBS DISCH >30 MIN Diagnoses COVID U07.1 Chest pain R07.9 Abnormal CXR R93.89 Time Spent (min) 35
--- NOTE | 2023-03-01 05:40 | Electrocardiogram Report ---
Test Reason : Blood Pressure : / mmHG Vent. Rate : 075 BPM Atrial Rate : 075 BPM P-R Int : 144 ms QRS Dur : 072 ms QT Int : 356 ms P-R-T Axes : 050 035 005 degrees QTc Int : 397 ms Sinus rhythm with Premature atrial complexes Cannot rule out Anterior infarct , age undetermined Nonspecific ST abnormality Abnormal ECG When compared with ECG of 19-AUG-2021 10:15, No significant change Confirmed by Ceferino oSrto ([id number]) on 03/01/2023 5:39:37 AM Referred By: Confirmed By:Ceferino Sorto
== END 2023-02-27 12:09 | disposition home or self-care (01) ==
LOC: ED 10:21 → EDINP 10:21 → SUATTDRO 17:08 → EDINP 18:47
DX: Z86.73 Personal history of transient ischemic attack (TIA), and cerebral infarction without residual deficits; U07.1 COVID-19; Z79.899 Other long term (current) drug therapy; Z82.49 Family history of ischemic heart disease and other diseases of the circulatory system; Z87.891 Personal history of nicotine dependence; J45.909 Unspecified asthma, uncomplicated; Z79.51 Long term (current) use of inhaled steroids; Z79.82 Long term (current) use of aspirin; Z80.1 Family history of malignant neoplasm of trachea, bronchus and lung; R07.9 Chest pain, unspecified; Z88.4 Allergy status to anesthetic agent; D64.9 Anemia, unspecified